=== PATIENT | female | born 1935 ===

== ENCOUNTER → 2017-07-17 10:49 | Outpatient (CLI) | payer OTHER ==
[~2017-07-17 10:49] MED LIST: CARDURA XL4 MG; LISINOPRIL40 MG
== END | disposition home or self-care (01) ==
LOC: LAB 10:49
DX: K57.31 Diverticulosis of large intestine without perforation or abscess with bleeding (principal); K92.2 Gastrointestinal hemorrhage, unspecified; Z01.812 Encounter for preprocedural laboratory examination

== ENCOUNTER 2017-07-19 07:11 | Day surgery (SDC) | payer OTHER | END 2017-07-19 14:15 | disposition home or self-care (01) | LOC: AMB-ENDOS 07:11 | DX: K57.30 Diverticulosis of large intestine without perforation or abscess without bleeding (principal); K64.1 Second degree hemorrhoids; K92.1 Melena ==